=== PATIENT | male | born 1950 | race Caucasian/White ===

== ENCOUNTER 2017-08-26 21:23 | Inpatient (IN) | payer OTHER, BC ==
[~2017-08-26] VITALS: Ht 180.3 cm; Wt 96.7 kg
[2017-08-26 22:22] LABS: HEMATOCRIT 41.6 % (38.0-50.0); HEMOGLOBIN 13.9 G/DL (12.5-16.6); MCH 30.1 PG (29.0-34.0); MCHC 33.4 G/DL (30.0-36.0); PLATELET COUNT 192 K/uL (156-360); RBC DIS.WIDTH-CV 13.1 % (11.8-14.6); RBC DIS.WIDTH-SD 42.8 % (39-53); RED BLOOD COUNT 4.62 M/uL (4.00-5.50); WHITE BLOOD COUNT 7.7 K/uL (4.1-10.2)
[2017-08-26 22:29] LABS: APPEARANCE SL.HAZY ((CLEAR)); BILIRUBIN NEGATIVE; BLOOD NEGATIVE; COLOR YELLOW ((YELLOW)); GLUCOSE (STRIP) >=500; KETONES NEGATIVE; LEUKOCYTES NEGATIVE; NITRITE NEGATIVE; PROTEIN (STRIP) 100; SPECIFIC GRAVITY 1.029 (1.000-1.030); UROBILINOGEN 0.2 MG/DL (0.2-1.0)
[2017-08-26 22:37] LABS: BACTERIA NONE SEEN /HPF; EPITHELIAL CELLS RARE /HPF; MUCUS 2+ /LPF; RED BLOOD CELLS TNTC /HPF (0-5); UCUL ADDED? YES; WHITE BLOOD CELLS 0-5 /HPF (0-5)
[2017-08-26 22:39] LABS: ALBUMIN 4.3 g/dL (3.2-4.8)
[2017-08-26 22:40] LABS: CHLORIDE 106 mEq/L (99-109); POTASSIUM 4.3 mEq/L (3.7-5.4); SODIUM 142 mEq/L (136-147)
[2017-08-26 22:42] LABS: GLUCOSE 282 mg/dL (70-99); TOTAL PROTEIN 7.5 g/dL (6.4-8.3)
[2017-08-26 22:44] LABS: TOTAL BILIRUBIN 0.7 mg/dL (0.0-1.0)
[2017-08-26 22:45] LABS: ALKALINE PHOSPHATASE 69 IU/L (3-129)
[2017-08-26 22:46] LABS: CREATININE 1.5 mg/dL (0.6-1.3); GFR ESTIMATE (CALCULATED) 50 mL/min/ (58.99-99999)
[2017-08-26 22:47] LABS: AST (GOT) 20 IU/L (2-34); UREA NITROGEN (BUN) 21 mg/dL (9-23)
[2017-08-26 22:48] LABS: ALT (GPT) 31 IU/L (3-49)
[2017-08-27 00:56] LABS: TROP-I INTERPRETATION NEGATIVE; TROPONIN-I < 0.01 ng/mL (0.0-0.30)
[2017-08-27 09:22] VITALS: BP 166/88
== END 2017-08-27 10:40 | disposition home or self-care (01) | DRG 694 ==
LOC: EME 21:23 → EDOF 08-27 04:19 → CANRESERV 08-27 04:30 → ENRESERV 08-27 04:30 → EDOF 08-27 10:40
PROVIDERS: Hospitalist
DX: N13.2 Hydronephrosis with renal and ureteral calculous obstruction (principal); N17.9 Acute kidney failure, unspecified; I10 Essential (primary) hypertension; E11.9 Type 2 diabetes mellitus without complications
CPT/HCPCS: 74176; 80048; 80053; 81003; 82948; 84484; 85025; 85027; 87086; 93005; 99281; 99284; J0696; J1644; J3010; J7030; J7120

== ENCOUNTER → 2017-08-27 | Outpatient (CLI) | payer MEDICARE, BC | END | disposition home or self-care (01) | LOC: CDC 11:33 | DX: Z01.810 Encounter for preprocedural cardiovascular examination (principal); R00.1 Bradycardia, unspecified | CPT/HCPCS: 93000 ==

== ENCOUNTER 2017-09-19 10:38 | Day surgery (SDC) | payer OTHER, BC ==
[~2017-09-19] VITALS: Ht 180.3 cm; Wt 92.7 kg
[2017-09-19 11:03] LABS: HEMATOCRIT 41.9 % (38.0-50.0); HEMOGLOBIN 13.9 G/DL (12.5-16.6); MCH 29.8 PG (29.0-34.0); MCHC 33.2 G/DL (30.0-36.0); MCV 89.9 FL (86-99); PLATELET COUNT 177 K/uL (156-360); RBC DIS.WIDTH-CV 13.2 % (11.8-14.6); RBC DIS.WIDTH-SD 43.1 % (39-53); RED BLOOD COUNT 4.66 M/uL (4.00-5.50); WHITE BLOOD COUNT 7.6 K/uL (4.1-10.2)
[2017-09-19 11:12] LABS: ALBUMIN 4.1 g/dL (3.2-4.8); CHLORIDE 104 mEq/L (99-109); SODIUM 143 mEq/L (136-147)
[2017-09-19 11:14] LABS: GLUCOSE 109 mg/dL (70-99); TOTAL PROTEIN 7.6 g/dL (6.4-8.3)
[2017-09-19 11:16] LABS: TOTAL BILIRUBIN 0.7 mg/dL (0.0-1.0)
[2017-09-19 11:18] LABS: ALKALINE PHOSPHATASE 70 IU/L (3-129); CREATININE 1.5 mg/dL (0.6-1.3); GFR ESTIMATE (CALCULATED) 50 mL/min/ (58.99-99999)
[2017-09-19 11:19] LABS: UREA NITROGEN (BUN) 26 mg/dL (9-23)
[2017-09-19 11:20] LABS: AST (GOT) 17 IU/L (2-34)
[2017-09-19 11:21] LABS: ALT (GPT) 24 IU/L (3-49)
[2017-09-19] MEDS ORDERED: LIPITOR40 MG PO (14:19)
[2017-09-19] MEDS ORDERED: GLUCOPHAGE1000 MG PO (14:19)
[2017-09-19] MEDS ORDERED: JANUVIA25 M1 PO (14:19)
[2017-09-19] MEDS ORDERED: TOPROL XL50 MG PO (14:20)
[2017-09-19] MEDS ORDERED: DIABETA5 MG PO (14:20)
[2017-09-19] MEDS ORDERED: TYLENOL EXTRA500 MG PO (14:20)
[2017-09-19] MEDS ORDERED: CORICIDIN HB1 TABLET PO (14:21)
[2017-09-19 16:37] LABS: APPEARANCE CLEAR ((CLEAR)); BILIRUBIN NEGATIVE; BLOOD SMALL; COLOR YELLOW ((YELLOW)); GLUCOSE (STRIP) NEGATIVE; KETONES NEGATIVE; LEUKOCYTES TRACE; NITRITE NEGATIVE; PROTEIN (STRIP) NEGATIVE; SPECIFIC GRAVITY 1.015 (1.000-1.030); UROBILINOGEN 0.2 MG/DL (0.2-1.0)
[2017-09-19 16:46] LABS: BACTERIA NONE SEEN /HPF; EPITHELIAL CELLS RARE /HPF; MUCUS TRACE /LPF; UCUL ADDED? YES
[2017-09-19 20:23] VITALS: BP 166/81
[2017-09-20 00:50] VITALS: BP 134/72
[2017-09-20 04:54] VITALS: BP 139/69
[2017-09-20 08:19] VITALS: BP 119/65
[2017-09-20 09:41] LABS: HEMATOCRIT 38.7 % (38.0-50.0); HEMOGLOBIN 12.6 G/DL (12.5-16.6); MCH 29.2 PG (29.0-34.0); MCHC 32.6 G/DL (30.0-36.0); MCV 89.8 FL (86-99); PLATELET COUNT 150 K/uL (156-360); RBC DIS.WIDTH-CV 13.3 % (11.8-14.6); RBC DIS.WIDTH-SD 43.8 % (39-53); RED BLOOD COUNT 4.31 M/uL (4.00-5.50); WHITE BLOOD COUNT 8.2 K/uL (4.1-10.2)
[2017-09-20 10:04] LABS: ALBUMIN 3.6 G/DL (3.2-4.8); ALKALINE PHOSPHATASE 53 IU/L (3-129); ALT (GPT) 17 IU/L (3-49); AST (GOT) 10 IU/L (2-34); CHLORIDE 100 MEQ/L (99-109); CREATININE 1.3 MG/DL (0.6-1.3); GFR ESTIMATE (CALCULATED) 59 mL/min/ (58.99-99999); POTASSIUM 4.6 MEQ/L (3.7-5.4); SODIUM 137 MEQ/L (136-147); TOTAL BILIRUBIN 0.7 MG/DL (0.0-1.0); TOTAL PROTEIN 5.9 G/DL (6.4-8.3); UREA NITROGEN (BUN) 23 mg/dL (9-23)
[2017-09-20 10:10] LABS: GLUCOSE 209 mg/dL (70-99)
[2017-09-20] MEDS ORDERED: ENDOCET 5-3251 EACH PO (12:00)
[2017-09-20 12:11] VITALS: BP 124/68
== END 2017-09-20 12:32 | disposition home or self-care (01) ==
LOC: EME 10:38 → SDC 16:18 → ENRESERV 17:29 → 2SOUTH 17:30 → 2EASTP 17:30 → ENRESERV 18:06 → 2EASTP 19:22
PROVIDERS: Emergency Medicine; Physician Assistant Surgical
PROC: 0DTJ4ZZ Resection of Appendix, Percutaneous Endoscopic Approach (ICD-10-PCS; principal; 2017-09-19)
DX: K35.80 Unspecified acute appendicitis (principal); K80.20 Calculus of gallbladder without cholecystitis without obstruction; I10 Essential (primary) hypertension; K57.30 Diverticulosis of large intestine without perforation or abscess without bleeding; N39.0 Urinary tract infection, site not specified; F41.9 Anxiety disorder, unspecified; E11.9 Type 2 diabetes mellitus without complications; Z87.442 Personal history of urinary calculi
CPT/HCPCS: 74176; 80053; 81003; 82948; 85027; 87086; 88304; 93005; 99281; 99285; G0378; J0131; J0330; J1100; J3010; J7030; J7120; S0020; S0074

== ENCOUNTER 2017-10-05 08:27 | Emergency (ER) | payer OTHER, BC ==
[~2017-10-05] VITALS: Ht 180.3 cm; Wt 90.1 kg
[~2017-10-05 08:27] MED LIST: ATIVAN0.5 MG PO; CORICIDIN HB1 TABLET PO; DIABETA5 MG PO; ENDOCET 5-3251 EACH PO; GLUCOPHAGE1000 MG PO; JANUVIA25 M1 PO; LIPITOR40 MG PO; TOPROL XL50 MG PO; TYLENOL EXTRA500 MG PO; ULTRAM50 MG PO
[2017-10-05 11:25] LABS: HEMATOCRIT 34.8 % (38.0-50.0); HEMOGLOBIN 11.3 G/DL (12.5-16.6); MCH 28.8 PG (29.0-34.0); MCHC 32.5 G/DL (30.0-36.0); MCV 88.8 FL (86-99); PLATELET COUNT 268 K/uL (156-360); RBC DIS.WIDTH-CV 13.3 % (11.8-14.6); RBC DIS.WIDTH-SD 43.1 % (39-53); RED BLOOD COUNT 3.92 M/uL (4.00-5.50); WHITE BLOOD COUNT 6.7 K/uL (4.1-10.2)
[2017-10-05 11:33] LABS: ALBUMIN 3.6 g/dL (3.2-4.8)
[2017-10-05 11:34] LABS: CHLORIDE 100 mEq/L (99-109); POTASSIUM 4.7 mEq/L (3.7-5.4); SODIUM 138 mEq/L (136-147)
[2017-10-05 11:36] LABS: GLUCOSE 163 mg/dL (70-99); TOTAL PROTEIN 7.2 g/dL (6.4-8.3)
[2017-10-05 11:38] LABS: TOTAL BILIRUBIN 0.5 mg/dL (0.0-1.0)
[2017-10-05 11:39] LABS: ALKALINE PHOSPHATASE 71 IU/L (3-129)
[2017-10-05 11:40] LABS: CREATININE 1.1 mg/dL (0.6-1.3); GFR ESTIMATE (CALCULATED) > 59 mL/min/ (58.99-99999)
[2017-10-05 11:41] LABS: AST (GOT) 15 IU/L (2-34); UREA NITROGEN (BUN) 16 mg/dL (9-23)
[2017-10-05 11:42] LABS: ALT (GPT) 23 IU/L (3-49)
[2017-10-05] MEDS ORDERED: AUGMENTIN875 MG PO (14:55)
[2017-10-05 15:14] VITALS: BP 137/84
== END 2017-10-05 15:19 | disposition home or self-care (01) ==
LOC: EME 08:27
PROVIDERS: Nurse Practitioner Family
DX: T81.4XXA Infection following a procedure, initial encounter (principal); E11.9 Type 2 diabetes mellitus without complications; Z79.84 Long term (current) use of oral hypoglycemic drugs; Z90.89 Acquired absence of other organs; F32.9 Major depressive disorder, single episode, unspecified; Z88.5 Allergy status to narcotic agent; Z88.6 Allergy status to analgesic agent
CPT/HCPCS: 74177; 80053; 83605; 85027; 87040; 87070; 87075; 87076; 87185; 87205; 99281; 99284; J7030

== ENCOUNTER 2017-10-09 07:02 | Day surgery (SDC) | payer OTHER, BC ==
[~2017-10-09] VITALS: Ht 180.3 cm; Wt 90.7 kg
[~2017-10-09 07:02] MED LIST changes: +AUGMENTIN875 MG PO
[2017-10-09 07:27] VITALS: BP 154/86
[2017-10-09 12:46] VITALS: BP 123/64
[2017-10-09 14:53] VITALS: BP 123/64
== END 2017-10-09 14:50 | disposition home or self-care (01) ==
LOC: SDC
PROVIDERS: Surgery
DX: K80.10 Calculus of gallbladder with chronic cholecystitis without obstruction (principal); L02.216 Cutaneous abscess of umbilicus; I10 Essential (primary) hypertension; E78.00 Pure hypercholesterolemia, unspecified; Z79.82 Long term (current) use of aspirin
CPT/HCPCS: 82948; J0330; J0690; J1100; J1170; J2405; J2710; J3010; J7643; Q0175

== ENCOUNTER 2017-10-17 12:00 | Day surgery (SDC) | payer OTHER, BC ==
[~2017-10-17] VITALS: Ht 180.3 cm; Wt 98.6 kg
[~2017-10-17 12:00] MED LIST changes: +BACTRIM,SEPT1 TABLET PO
[2017-10-17] MEDS ORDERED: CHILD ASPIRIN81 M1 PO (12:25)
[2017-10-17 12:42] VITALS: BP 135/74
[2017-10-17 18:33] VITALS: BP 168/74
[2017-10-17 19:27] VITALS: BP 142/72
[2017-10-17 23:07] VITALS: BP 151/64
[2017-10-18 03:10] VITALS: BP 143/82
[2017-10-18 07:45] VITALS: BP 167/79
[2017-10-18 08:04] LABS: BASOPHIL (%) 0.3 % (0-1); EOSINOPHIL COUNT 0.1 K/uL (0-0.3); HEMOGLOBIN 10.6 G/DL (12.5-16.6); IMMATURE GRANULOCYTE (%) 0.5 % (0.0-0.7); LYMPHOCYTE (%) 11.6 % (15-42); LYMPHOCYTE COUNT 0.9 K/uL (1.0-2.8); MCH 27.7 PG (29.0-34.0); MCHC 31.2 G/DL (30.0-36.0); MCV 88.8 FL (86-99); MONOCYTE (%) 11.3 % (3-12); MONOCYTE COUNT 0.9 K/uL (0-0.8); NEUTROPHIL (%) 75.3 % (45-76); NEUTROPHIL COUNT 5.8 K/uL (1.8-6.4); PLATELET COUNT 267 K/uL (156-360); RBC DIS.WIDTH-CV 14.1 % (11.8-14.6); RBC DIS.WIDTH-SD 45.3 % (39-53); RED BLOOD COUNT 3.83 M/uL (4.00-5.50); WHITE BLOOD COUNT 7.7 K/uL (4.1-10.2)
[2017-10-18 08:33] LABS: CHLORIDE 99 MEQ/L (99-109); CREATININE 1.2 MG/DL (0.6-1.3); GFR ESTIMATE (CALCULATED) > 59 mL/min/ (58.99-99999); GLUCOSE 195 mg/dL (70-99); POTASSIUM 4.9 MEQ/L (3.7-5.4); SODIUM 137 MEQ/L (136-147); UREA NITROGEN (BUN) 14 mg/dL (9-23)
[2017-10-18 12:26] VITALS: BP 185/84
[2017-10-18] MEDS ORDERED: CEFOTAN IV (13:42)
[2017-10-18] MEDS ORDERED: FLAGYL500 MG/100 IV (13:44)
[2017-10-18] MEDS ORDERED: ENDOCET 5-3251 EACH PO (13:44)
== END 2017-10-18 14:20 | disposition home or self-care (01) ==
LOC: SDC 12:00 → 2SOUTH 17:13 → 2EAST 17:13 → ENRESERV 17:24 → 2EAST 18:26
PROVIDERS: Physician Assistant; Surgery
PROC: 0JB80ZZ Excision of Abdomen Subcutaneous Tissue and Fascia, Open Approach (ICD-10-PCS; principal; 2017-10-17)
PROC: 0DN80ZZ Release Small Intestine, Open Approach (ICD-10-PCS; principal; 2017-10-17)
PROC: 0W9G0ZZ Drainage of Peritoneal Cavity, Open Approach (ICD-10-PCS; principal; 2017-10-17)
PROC: 0DB80ZZ Excision of Small Intestine, Open Approach (ICD-10-PCS; principal; 2017-10-17)
DX: T81.4XXA Infection following a procedure, initial encounter (principal); B96.6 Bacteroides fragilis [B. fragilis] as the cause of diseases classified elsewhere; Z90.49 Acquired absence of other specified parts of digestive tract; E78.00 Pure hypercholesterolemia, unspecified; I10 Essential (primary) hypertension; R73.03 Prediabetes; Z79.82 Long term (current) use of aspirin; Y83.6 Removal of other organ (partial) (total) as the cause of abnormal reaction of the patient, or of later complication, without mention of misadventure at the time of the procedure
CPT/HCPCS: 80048; 82948; 85025; 87070; 87075; 87076; 87185; 87205; G0378; J0690; J1170; J1885; J2250; J2405; J3010; J7120; S0020; S0074